=== PATIENT | male | born 1985 | race Caucasian/White ===

== ENCOUNTER → 2017-03-20 | Outpatient (CLI) | payer OTHER | LOC: BMCIMAGING 16:34 | PROVIDERS: ATTEND Nurse Practitioner Adult Health | DX: S82.431A Displaced oblique fracture of shaft of right fibula, initial encounter for closed fracture (principal) ==

== ENCOUNTER → 2017-03-22 | Outpatient (CLI) | payer OTHER | LOC: FIMAGING 13:30 | PROVIDERS: ATTEND Podiatrist Foot & Ankle Surgery | DX: I82.4Z1 Acute embolism and thrombosis of unspecified deep veins of right distal lower extremity (principal) ==

== ENCOUNTER 2017-03-29 08:35 | Day surgery (SDC) | payer OTHER ==
[2017-03-29] MEDS ORDERED: LIDOCAINE 1% 2 ML INJ ONE (08:49)
[2017-03-29] MEDS ORDERED: LIDOCAINE 1% 5 ML SDV ID PRN (09:39)
[2017-03-29] MEDS ORDERED: LR 1,000 ML IV ONE (09:39)
[2017-03-29] MEDS ORDERED: ceFAZolin 1 GM/5 ML SYR ONE (09:44)
[2017-03-29] MEDS ORDERED: BUPIVACAINE 0.5% 30 ML SDV ONE ×2 (09:44→09:57)
[2017-03-29] MEDS ORDERED: LIDOCAINE 2% 5 ML SDV ONE ×2 (09:45→10:01)
[2017-03-29] MEDS ORDERED: LIDO/EPI 1% **Not for Epidural 20 ML MDV ONE (09:45)
[2017-03-29] MEDS ORDERED: MIDAZOLAM 2 MG/2 ML VIAL ONE (09:52)
[2017-03-29] MEDS ORDERED: fentaNYL 100 MCG/2 ML INJ ONE ×2 (10:01→12:03)
[2017-03-29] MEDS ORDERED: PROPOFOL 200 MG/20 ML VIAL ONE (10:01)
[2017-03-29] MEDS ORDERED: epHEDrine SULFATE 10 MG/ML SYR ONE (11:01)
--- NOTE | 2017-03-29 14:53 | GOP ---
[f rep st] OPERATIVE REPORT DATE OF OPERATION: 03/29/2017 SURGEON: Liliya Schwartz DPM ANESTHESIA: General and popliteal block. ANESTHESIOLOGIST: Dr. Jessica. PREOPERATIVE DIAGNOSIS: 1. Right fibular fracture. 2. Right ankle joint effusion and synovitis. POSTOPERATIVE DIAGNOSIS: 1. Right fibular fracture. 2. Right ankle joint effusion and synovitis. PROCEDURE PERFORMED: 1. Right fibular fracture open reduction, internal fixation with plate and screws. 2. Right ankle arthroscopy with synovectomy. FINDINGS: ESTIMATED BLOOD LOSS: Minimal. DESCRIPTION OF PROCEDURE: Under mild sedation, the patient was brought into the operating room, prosper theresa on the operating table in supine position. Dr. Jessica performed the popliteal block. The saphe nous block was performed by de using 10 cc of a 1:1 mixture of 0.5% Marcaine plain and 2% lidocaine plain. General anesthesia was obtained. A thigh tourniquet was placed about the right thigh. The rig ht leg was then placed into the leg keenan to allow appropriate position for the ankle scope. The fo ot and leg were then scrubbed, prepped, and draped in the usual aseptic manner. Exsanguination was n ot performed due to the DVT. The tourniquet was inflated to 275 mmHg. The right foot and leg were pl aced into the ankle distractor and the ankle distracted. 10 cc of 1% lidocaine with epinephrine was injected into the ankle joint to insufflate the ankle joint prior to the scope. A stab incision was made over the anterior medial portal of the ankle. The scope was then placed and ankle joint evaluat ed. An anterior lateral portal was then made, and the shaver inserted. There was significant hemorrh agic synovitis noted about the ankle joint, which was debrided with the shaver. There were no osteoc hondral defects noted. Once the synovitis was removed, the scope and shaver were removed. The portal s were then closed with 4-0 Prolene. The ankle distractor and leg keenan were removed. A bump was placed underneath the patient's right h ip. Attention was then directed to the lateral aspect of the ankle over the fibular fracture. An inc ision was made over the lateral malleolus extending proximally and distally to the fracture. The inc ision was deepened down to the level of the bone. The fracture was quickly identified. A hematoma wa s removed with a curette and irrigation. A bone reduction forceps was then used to reapproximate the fracture. A 3.5 OsteoMed lag screw was then inserted from anterior proximal to posterior distal acr oss the fracture site. This nicely held the fracture alignment in place. This was evaluated under fl uoroscopy, and the fracture line no longer visible. At this point, the bone reduction forceps was re moved. The precontoured fibular plate was then placed over the fracture site and evaluated under flu oroscopy. The proximal screw hole was cut. The rough edges of the plate were then smoothed with a fi le. The plate was then placed over the fracture site and proximal screw holes. I used 3.5 cortical a nd locking screws, and distal to the fracture 2.7 cortical and locking screws were placed across the plate, with good compression with all the screws. This was evaluated under fluoroscopy, and positio n of the screws and length were all perfect. There was no syndesmotic disruption noted. The wound wa s then irrigated with copious sterile saline-Ancef irrigation. The periosteum was repaired with 3-0 Vicryl. The subcuticular layer was repaired with 4-0 Monocryl and the skin with 4-0 Prolene in horiz ontal suture technique. Xeroform, 4 x 4 gauze, Kerlix, cast padding, posterior splint, and an Jose wr ap were applied. The tourniquet was deflated at 96 minutes. A prompt hyperemic response was noted to all digits of the right foot. The patient was then transferred to the recovery room, with vital signs stable and vascular status i ntact. Following a period of postoperative monitoring, he will be discharged home. Advised to ice an d elevate his foot. He was dispensed a Cryo/Cuff. He is nonweightbearing on his foot, with the use o f crutches. He will take oxycodone for pain postoperatively. For the DVT, he will resume anticoagula nts and begin the Pradaxa. He will follow up with me on Saturday for a wound check and dressing change . INJECTABLES: Preop injection of 10 cc of a 1:1 mixture 0.5% Marcaine plain and 2% lidocaine plain a s a saphenous block. 10 cc of 1% lidocaine with epinephrine intra-articularly into the ankle joint. MATERIALS: Ostium had a precontoured fibular plate with 3.5 and 2.7 locking and nonlocking screws. 3.5 mm lag screw. HEMOSTASIS: Pneumatic thigh tourniquet at 275 mmHg for 96 minutes. /[id number]/MODL
== END 2017-03-29 14:46 | disposition home or self-care (01) ==
LOC: FSGY 08:35
PROVIDERS: ATTEND Podiatrist Foot & Ankle Surgery
PROC: 0QSJ04Z Reposition Right Fibula with Internal Fixation Device, Open Approach (ICD-10-PCS; principal; 2017-03-29 10:00)
PROC: 0SBF4ZZ Excision of Right Ankle Joint, Percutaneous Endoscopic Approach (ICD-10-PCS; 2017-03-29 10:00)
DX: S82.831A Other fracture of upper and lower end of right fibula, initial encounter for closed fracture (principal); M65.861 Other synovitis and tenosynovitis, right lower leg; M25.471 Effusion, right ankle; W01.0XXA Fall on same level from slipping, tripping and stumbling without subsequent striking against object, initial encounter; Y92.019 Unspecified place in single-family (private) house as the place of occurrence of the external cause
CPT/HCPCS: C1713; J0690; J2250; J2704; J3010

== ENCOUNTER → 2017-04-30 | Outpatient (CLI) | payer OTHER | LOC: BMCIMAGING 10:34 | PROVIDERS: ATTEND Podiatrist Foot & Ankle Surgery | DX: S82.831D Other fracture of upper and lower end of right fibula, subsequent encounter for closed fracture with routine healing (principal) ==

== ENCOUNTER → 2017-05-20 | Outpatient (CLI) | payer OTHER | LOC: BMCIMAGING 15:42 | PROVIDERS: ATTEND Podiatrist Foot & Ankle Surgery | DX: S82.831D Other fracture of upper and lower end of right fibula, subsequent encounter for closed fracture with routine healing (principal) ==

== ENCOUNTER → 2017-08-08 | Outpatient (CLI) | payer OTHER | LOC: BMCIMAGING 15:49 | PROVIDERS: ATTEND Podiatrist Foot & Ankle Surgery | DX: S82.401D Unspecified fracture of shaft of right fibula, subsequent encounter for closed fracture with routine healing (principal) ==